=== PATIENT | male | born 1955 | race Hispanic/Latino ===

== ENCOUNTER 2023-07-18 07:28 | Day surgery (SDC) | payer OTHER ==
[2023-07-12 13:26] LABS: BASOPHILS # (AUTO) 0.08 K/uL (0.00-0.20); BASOPHILS % (AUTO) 1.2 % (0.0-5.0); EOSINOPHILS # (AUTO) 0.06 K/uL (0.00-0.70); EOSINOPHILS % (AUTO) 0.9 % (0.0-8.0); HEMATOCRIT 42.6 % (42-54); IMMATURE GRANULOCYTE ABSOLUTE 0.02 K/uL (0-1); LYMPHOCYTES # (AUTO) 1.8 K/uL (1.0-4.8); LYMPHOCYTES % (AUTO) 25.7 % (21.0-51.0); MEAN CORPUSCULAR HEMOGLOBIN 30.2 pg (27.0-33.0); MEAN CORPUSCULAR HGB CONC 34.5 g/dL (32.0-36.0); MEAN CORPUSCULAR VOLUME 87.7 fL (79-99); MONOCYTES # (AUTO) 0.5 K/uL (0.1-1.0); MONOCYTES % (AUTO) 7.8 % (3.0-13.0); NEUTROPHILS # (AUTO) 4.4 K/uL (1.8-7.7); NEUTROPHILS % (AUTO) 64.1 % (40.0-77.0); PLATELET COUNT (AUTO) 177 K/uL (130-400); RED BLOOD CELL COUNT(AUTO) 4.86 MIL/uL (4.50-6.20); RED CELL DISTRIBUTION WIDTH 12.8 % (11.0-15.5); WHITE BLOOD COUNT (AUTO) 6.9 K/uL (4.8-10.8)
[2023-07-12 13:30] LABS: APPEARANCE,URINE CLEAR (CLEAR); BILIRUBIN,URINE NEGATIVE (NEGATIVE); COLOR,URINE YELLOW (YELLOW); GLUCOSE, URINE (UA) NEGATIVE (NEGATIVE); KETONES,URINE NEGATIVE (NEGATIVE); LEUKOCYTE ESTERASE ,URINE NEGATIVE Leu/uL (NEGATIVE); NITRATE,URINE NEGATIVE (NEGATIVE); OCCULT BLOOD,URINE SMALL (NEGATIVE); PH,URINE 5.5 (5.0-8.0); PROTEIN,URINE 20 mg/dL (NEGATIVE); UROBILINOGEN,URINE 0.2 mg/dL (0.2-1.0)
[2023-07-12 13:35] LABS: ADD UA MICROSCOPIC YES
[2023-07-12 13:45] LABS: MUCUS,URINE FEW LPF (None Seen)
[2023-07-12 13:45] LABS: POTASSIUM 3.8 mmol/L (3.5-5.1)
[2023-07-12 14:03] VITALS: BP 125/77; PULSE 59; RESP 18
[~2023-07-18] VITALS: Ht 172.7 cm; Wt 72.6 kg
[2023-07-18] VITALS (13 sets, daily range): BP systolic 94–140; BP diastolic 58–87; PULSE 59–76; RESP 15–18
[~2023-07-18 07:28] MED LIST: FINA5TAB41 PO; LEVO-70 PO; METF-444 PO; TAMS0.4C32 PO
[2023-07-18] MEDS ORDERED: DEXAMETHASONE SOD PHOSPHATE 4 MG/ML 1ML VIAL ONE (08:21)
[2023-07-18] MEDS ORDERED: LIDOCAINE PF 100MG/5ML (2%) SYRINGE 5ML ONE (08:21)
[2023-07-18] MEDS ORDERED: MIDAZOLAM HCL 1 MG/ML 2ML VIAL ONE (08:22)
[2023-07-18] MEDS ORDERED: PROPOFOL 10 MG/ML 20ML VIAL IV ONE (08:22)
[2023-07-18] MEDS ORDERED: FENTANYL CITRATE PF 50 MCG/1 ML 2ML VIAL ONE (08:22)
[2023-07-18] MEDS ORDERED: ONDANSETRON 4MG INJ ONE (08:22)
[2023-07-18] MEDS: 0.9%NACL 1000ML 1,000 ML IV ONE (08:46)
[2023-07-18] MEDS: GENTAMICIN 80 MG/NS 100 ML PB 100 ML IV ONE (08:47)
[2023-07-18] MEDS: CEFTRIAXONE 1G VIAL ONE (08:48)
== END 2023-07-18 11:00 | disposition home or self-care (01) ==
LOC: DAH 07:28
PROVIDERS: ATTEND Urology
DX: R97.20 Elevated prostate specific antigen [PSA] (principal); N40.0 Benign prostatic hyperplasia without lower urinary tract symptoms; N41.1 Chronic prostatitis; I10 Essential (primary) hypertension; E11.9 Type 2 diabetes mellitus without complications; Z79.899 Other long term (current) drug therapy
CPT/HCPCS: 80048; 85025; 87088; 81001; 36415; 93005; 55700; 76872; 82948 ×2; 88305; A6260; J1100; A4663; J3010; J7030; J2001; J0696; J2250; J2704; J2405; J1580; A4215 ×2; A4649; A4213; A4222; A4221; A4223 ×2; A4600; 76942; J3490